=== PATIENT | female | born 1965 | race Caucasian/White ===

== ENCOUNTER → 2017-09-04 | Outpatient (CLI) | payer BC ==
[2017-09-04 09:17] LABS: HDW 2.35; MCH 30.6 pg (25.0-35.0)
[2017-09-04 09:21] LABS: ALT 28 U/L (9-52); AST 20 U/L (14-36); Alkaline Phosphatase 97 U/L (38-126); Anion Gap 9 mmol/L; Blood Urea Nitrogen 11 mg/dL (7-17); Calcium 9.2 mg/dL (8.4-10.2); Carbon Dioxide 25 mmol/L (22-30); Chloride 109 mmol/L (98-107); Cholesterol 221 mg/dL (<200); Glucose 96 mg/dL (74-99); HDL Cholesterol 44 mg/dL (40-60); Non-African American GFR(MDRD) >60 (>60 ml/min/1.73 sqM); Potassium 4.4 mmol/L (3.5-5.1); Sodium 143 mmol/L (137-145); Total Bilirubin 0.4 mg/dL (0.2-1.3)
[2017-09-04 09:24] LABS: CH 32.9; CHCM 34.3; HGB 14.6 gm/dL (11.4-16.0); MCHC 31.7 g/dL (31.0-37.0); MCV 96.3 fL (80.0-100.0); Mean Platelet Volume 7.5; RBC 4.77 m/uL (3.80-5.40); WBC 5.2 k/uL (3.8-10.6)
== END | disposition home or self-care (01) ==
LOC: LABWHC1 07:52
PROVIDERS: ATTEND Psychiatry & Neurology Psychiatry
DX: F31.60 Bipolar disorder, current episode mixed, unspecified (principal); E78.5 Hyperlipidemia, unspecified; Z79.899 Other long term (current) drug therapy
CPT/HCPCS: 36415; 80053; 80061; 80074; 84439; 84443; 85027

== ENCOUNTER → 2019-01-23 | Outpatient (CLI) | payer BC ==
--- NOTE | 2019-01-23 15:28 | NM ---
EXAMINATION TYPE: NM hepatobiliary w EF DATE OF EXAM: 01/23/2019 COMPARISON: NONE HISTORY: Abdominal pain not further specified per order. Nausea. TECHNIQUE: After the intravenous administration of 5.0 mCi Tc 99m Mebrofenin hepatobiliary scintigrap hy is performed. Immediate images post injection. FINDINGS: There is satisfactory initial accumulation of tracer by the liver. The gallbladder is visualized wit hin 20 minutes. The small bowel activity is noted within 25 minutes. At one hour 8 ounces of oral e nsure plus is given to mimic CCK and gallbladder ejection fraction is calculated at 79 %, in the norm al range. Therefore there is no scintigraphic evidence of cystic or common bile duct obstruction to suggest acute cholecystitis or gallbladder dyskinesia. IMPRESSION: Exam is within normal limits.
== END | disposition home or self-care (01) ==
LOC: RADNMMAIN 12:57
PROVIDERS: ATTEND Family Medicine
DX: R10.11 Right upper quadrant pain (principal); Z88.0 Allergy status to penicillin; Z88.6 Allergy status to analgesic agent
CPT/HCPCS: 78226; A9537

== ENCOUNTER → 2019-05-28 | Outpatient (CLI) | payer BC ==
[2019-05-28 12:23] LABS: HCT 45.7 % (34.0-46.0); HGB 15.7 gm/dL (11.4-16.0); MCHC 34.3 g/dL (31.0-37.0); MCV 90.4 fL (80.0-100.0); Mean Platelet Volume 7.5; Platelet Count 269 k/uL (150-450); RBC 5.06 m/uL (3.80-5.40); RDW 13.7 % (11.5-15.5); WBC 6.7 k/uL (3.8-10.6)
[2019-05-28 18:11] LABS: African American GFR (CKD) 84.6 (60.0-200.0); Albumin 4.3 g/dL (3.80-4.90); Albumin/Globulin Ratio 2.26 (1.60-3.17); BUN/Creat Ratio 12.22 Ratio (12.00-20.00); Calcium 9.3 mg/dL (8.7-10.3); Globulin 1.9 g/dL (1.6-3.3); LDL Cholesterol,Calculated 116.2 mg/dL (0.0-131.0); Potassium 4.2 mmol/L (3.5-5.5); Total Bilirubin 0.5 mg/dL (0.2-1.2); Total Protein 6.2 g/dL (6.2-8.2); VLDL Calculation 56.8 mg/dL (5.00-40.00)
[2019-05-28 18:19] LABS: T4, Free (Free Thyroxine) 0.9 ng/dL (0.80-1.80)
[2019-05-28 20:38] LABS: Hemoglobin A1C 5.3 % (4.0-6.0)
== END | disposition home or self-care (01) ==
LOC: LABWHC1 11:29
PROVIDERS: ATTEND Psychiatry & Neurology Psychiatry
DX: E78.5 Hyperlipidemia, unspecified (principal); R73.9 Hyperglycemia, unspecified
CPT/HCPCS: 36415; 80053; 80061; 83036; 84439; 84443; 85027

== ENCOUNTER → 2022-04-07 | Outpatient (CLI) | payer BC ==
[2022-04-07 18:39] LABS: HCT 44.4 % (37.2-46.3); HGB 15.3 g/dL (12.0-15.0); MCH 31.4 pg (27.0-32.0); MCHC 34.5 g/dL (32.0-37.0); NRBC Per 100 WBC 0 /100 WBCS (0.0-0.0); Platelet Count 250 X 10*3/uL (140-440); RBC 4.88 X 10*6/uL (4.10-5.20); RDW 11.1 % (11.5-14.5); WBC 6.75 X 10*3/uL (4.50-10.00)
[2022-04-07 19:35] LABS: Chol/HDL Ratio 6.25 Ratio; LDL Cholesterol,Calculated 111.9 mg/dL (0.0-131.0)
== END | disposition home or self-care (01) ==
LOC: LABWHC1 11:39
PROVIDERS: ATTEND Psychiatry & Neurology Psychiatry
DX: U07.1 COVID-19 (principal); E78.5 Hyperlipidemia, unspecified; E55.9 Vitamin D deficiency, unspecified
CPT/HCPCS: 36415; 80061; 82306; 85027; 86769

== ENCOUNTER → 2024-01-23 | Outpatient (CLI) | payer BC ==
[2024-01-23 16:53] VITALS: BP 165/85; PULSE 97; RESP 12; TEMP 98
--- NOTE | 2024-01-23 17:47 | P.PN ---
Subjective DATE: 01/23/2024 FOLLOW UP VISIT. Patient with obstructive sleep apnea hypopnea syndrome return to sleep center for follow-up visit. Information from previous visit have been reviewed. Patient was not able to use sure CPAP equipment regularly during the last months because her hose was broken. The patient does not have significant problems with the mask, PAP unit and humidification. Vanderbilt sleepiness scale is increased to 13. I checked information from PAP unit. PAP unit pressure 5-15, average 10.2 cm H2O. Leak is increased to 41.7 l/m. Apnea Hypopnea Index is 1.2, which is normal. While using CPAP patient feels no headaches, and feels much more refreshed after sleep. MEDICATIONS:1. Lamictal 100 mg twice a day 2. Rosuvastatin 10 mg once a day 3. Pantoprazole 20 mg once a day 4. Alprazolam 0.5 mg up to 3 times a day During physical exam: GENERAL: A pleasant patient without any distress. VITAL SIGNS: Please see below. HEENT: PERRLA, EOMI.low position of soft palate, Mallapati[] . NECK: Supple. No JVD. LUNGS: Clear to percussion and to auscultation. Good air exchange. No wheezing or rhonchi. HEART: S1, S2 regular. ABDOMEN: Soft and nontender.[] EXTREMITIES: No clubbing or cyanosis. TILE DESIGNER: Awake, alert, and oriented x3. No focal deficit. Impressions: 1. Obstructive sleep apnea-hypopnea syndrome. Patient demonstrated great compliance with treatment, benefiting from treatment. 2. Anxiety. 3. Asthma. 4. Hyperlipidemia. 5. Headaches. 6. History of fatty liver. 7. Status post . 8. Status post bilateral cataract surgery. Plan: 1. Continue using PAP equipment every night for the whole night. 2. To change air filter at least 1-2 times per month. 3. PAP unit should stay lower then position of the head. 4. Advised patient to remove all remaining water from humidifier canister daily and make it dry after each usage. Refill canister with fresh distilled water before each usage. 5. Sleep hygiene with regular time in bed for at least 8 hours. 6. Precautions related to driving. No driving if feel any sleepiness. 7. I will maintain prescription for PAP supplies including mask, tube, filters. 8. Follow up visit in 6 months or earlier if patient has any problems. 9. Watching weight. Thank you very much for allowing me to participate in the management of your patient. Best Barber MD, PhD, FAASM. Diplomat of [place] [employer], Sleep Medicine Board by [place] [employer] Linux Support Engineer of [facility] [place] Objective - Vital Signs Vital signs: Vital Signs Temp 98 F 01/23/24 16:23 Pulse 97 01/23/24 16:23 Resp 12 01/23/24 16:23 BP 165/85 01/23/24 16:23 Pulse Ox 96 01/23/24 16:23 FiO2 Intake & Output 01/22/24 01/23/24 01/23/24 18:59 06:59 18:59 Weight 88.904 kg
== END ==
LOC: 3 N SLEEP 15:45
PROVIDERS: ATTEND Internal Medicine
DX: G47.33 Obstructive sleep apnea (adult) (pediatric) (principal); F41.9 Anxiety disorder, unspecified; J45.909 Unspecified asthma, uncomplicated; E78.5 Hyperlipidemia, unspecified; R51.9 Headache, unspecified; F12.90 Cannabis use, unspecified, uncomplicated; Z87.19 Personal history of other diseases of the digestive system; Z98.890 Other specified postprocedural states; Z98.41 Cataract extraction status, right eye; Z98.42 Cataract extraction status, left eye; Z99.89 Dependence on other enabling machines and devices; Z88.6 Allergy status to analgesic agent; Z79.899 Other long term (current) drug therapy; Z88.0 Allergy status to penicillin; Z88.8 Allergy status to other drugs, medicaments and biological substances; Z87.891 Personal history of nicotine dependence
CPT/HCPCS: 99212

== ENCOUNTER 2024-04-15 09:53 | Emergency (ER) | payer BC ==
[2024-04-15 10:11] VITALS: TEMP 98.1
--- NOTE | 2024-04-15 12:03 | ED ---
Female Urogenital HPI - General Chief complaint: Urogenital Stated complaint: bad bladder infection Time Seen by Provider: 04/15/24 10:07 Source: patient, RN notes reviewed Mode of arrival: ambulatory Limitations: no limitations - History of Present Illness Initial comments: This is a 58-year-old female presents emergency department chief complaint of dy suria, hematuria, and suprapubic pain over the past 2 weeks, and symptoms this morning of worsening dysuria and hematuria prompted her to report to the urgent care. Patient states that [facility] where urinalysis was performed which revealed elevated WBCs and blood in the urine, she was prescribed bactrim DS. She denies fevers, nausea, vomiting, flank or back pain, diarrhea, constipation. Patient was recently treated with azithromycin 2 weeks ago for bronchitis. She denies vaginal discharge or pain. - Related Data Home Medications Medication Instructions Recorded Confirmed ALPRAZolam [Xanax] 0.5 mg PO Q8HR PRN 06/29/16 01/23/24 Acetaminophen [Tylenol] 1,000 mg PO Q8H PRN 06/29/16 01/23/24 Loratadine [Claritin] 10 mg PO DAILY PRN 06/29/16 01/23/24 lamoTRIgine [LaMICtal] 200 mg PO HS 06/29/16 01/23/24 Pantoprazole Sodium [Protonix] 20 mg PO DAILY 01/23/24 01/23/24 Rosuvastatin [Crestor] 20 mg PO ONCE 01/23/24 01/23/24 Previous Rx's Medication Instructions Recorded Phenazopyridine [Pyridium] 200 mg PO TID #6 tablet 04/15/24 Allergies Allergy/AdvReac Type Severity Reaction Status Date / Time aspirin Allergy Anaphylaxis Verified 04/15/24 10:11 NSAIDS (Non-Steroidal Allergy Rash/Hives Verified 04/15/24 10:11 Anti-Inflamma Penicillins Allergy Anaphylaxis Verified 04/15/24 10:11 Review of Systems ROS Statement: Those systems with pertinent positive or pertinent negative responses have been documented in the HPI. ROS Other: All systems not noted in ROS Statement are negative. Past Medical History Past Medical History: Asthma, Coronary Artery Disease (CAD), Hyperlipidemia, Syncope Additional Past Medical History / Comment(s): anxiety, enlarged liver History of Any Multi-Drug Resistant Organisms: None Reported Past Surgical History: Section, Heart Catheterization Additional Past Surgical History / Comment(s): abdominal surgery for hernia repair, and esophogus repair, cataracts surgery, laparoscopic Matt fundoplication, . Past Anesthesia/Blood Transfusion Reactions: No Reported Reaction Past Psychological History: Anxiety, Bipolar, Panic Disorder Smoking Status: Former smoker Past Alcohol Use History: None Reported Past Drug Use History: Marijuana - Past Family History Mother Family Medical History: Cancer, COPD, Myocardial Infarction ([place]) Additional Family Medical History / Comment(s): cervical CA Brother(s) Family Medical History: Seizure Disorder Additional Family Medical History / Comment(s): epiletic Sister(s) Family Medical History: No Reported History Father Family Medical History: No Reported History Daughter(s) Family Medical History: No Reported History Son(s) Family Medical History: No Reported History General Exam Limitations: no limitations General appearance: alert, in no apparent distress Head exam: Present: atraumatic, normocephalic, normal inspection Eye exam: Present: normal appearance, PERRL, EOMI. Absent: scleral icterus, conjunctival injection, periorbital swelling ENT exam: Present: normal exam, mucous membranes moist Neck exam: Present: normal inspection. Absent: tenderness, meningismus, lymphadenopathy Respiratory exam: Present: normal lung sounds bilaterally. Absent: respiratory distress, wheezes, rales, rhonchi, stridor Cardiovascular Exam: Present: regular rate, normal rhythm, normal heart sounds. Absent: systolic murmur, diastolic murmur, rubs, gallop, clicks GI/Abdominal exam: Present: soft, tenderness (Suprapubic), normal bowel sounds. Absent: distended, guarding, rebound, rigid Extremities exam: Present: normal inspection, full ROM, normal capillary refill. Absent: tenderness, pedal edema, joint swelling, calf tenderness Back exam: Present: normal inspection. Absent: CVA tenderness (R), CVA tenderness (L) Neurological exam: Present: alert, oriented X3, CN II-XII intact Psychiatric exam: Present: normal affect, normal mood Skin exam: Present: warm, dry, intact, normal color. Absent: rash Course Vital Signs 04/15/24 04/15/24 10:09 13:45 Temperature 98.1 F Pulse Rate 86 85 Respiratory 20 18 Rate Blood Pressure 169/92 184/98 O2 Sat by Pulse 99 96 Oximetry Medical Decision Making - Medical Decision Making Was pt. sent in by a medical professional or institution (, PA, [facility], urgent care, hospital, or fci...) When possible be specific @ -Referred by [facility] urgent care for further evaluation of elevated red blood cells and white blood cells within urine. he patient's provider at the was concerned regarding to abdominal distention and refer the patient to the emergency department for further evaluation. On discussion, patient states that her abdomen is nondistended and this is at baseline for her. Did you speak to anyone other than the patient for history (EMS, parent, family, police, friend...)? What history was obtained from this source @ -No Did you review nursing and triage notes (agree or disagree)? Why? @ -I reviewed and agree with nursing and triage notes Were old charts reviewed (outside hosp., previous admission, EMS record, old EKG, old radiological studies, urgent care reports/EKG's, fci records)? Report findings @ -No old charts were reviewed Differential Diagnosis (chest pain, altered mental status, abdominal pain women, abdominal pain men, vaginal bleeding, weakness, fever, dyspnea, syncope, headache, dizziness, GI bleed, back pain, seizure, CVA, palpatations, mental health, musculoskeletal)? @ -Differential Abdominal Pain Women: Appendicitis, Cholecystitis, diverticulosis, ischemic bowel, pancreatitis, hepatitis, UTI, gastroenteritis, AAA, incarcerated hernia, bowel obstruction, constipation, inflammatory bowel, hepatitis, peptic ulcer disease, splenic infarction, perforated viscus, vulvitis, ovarian torsion, PID, kidney stone, placenta abruption, this is not meant to be an all-inclusive list EKG interpreted by me (3pts min.). @ -None X-rays interpreted by me (1pt min.). @ -None done CT interpreted by me (1pt min.). @ -None done U/S interpreted by me (1pt. min.). @ -None done What testing was considered but not performed or refused? (CT, X-rays, U/S, labs)? Why? @ -ReSound and CT were considered but deferred at this time. Due to patient's urinalysis findings concern for infection she will be discharged home with antibiotics. Patient is requesting that she be discharged home and states that she will follow-up with her primary care provider this week for reevaluation of urinalysis. What meds were considered but not given or refused? Why? @ -Pain medication was offered but deferred at this time by the patient. Did you discuss the management of the patient with other professionals (professionals i.e. , PA, [facility] [facility], lab, RT, psych nurse, clinical social work aide, car unloader helper, teacher, annual giving officer, case liner)? Give summary @ -No Was smoking cessation discussed for >3mins.? @ -No Was critical care preformed (if so, how long)? @ -No Were there social determinants of health that impacted care today? How? (Homelessness, low income, unemployed, alcoholism, drug addiction, transportation, low edu. Level, literacy, decrease access to med. care, alf, rehab)? @ -No Was there de-escalation of care discussed even if they declined (Discuss DNR or withdrawal of care, Hospice)? DNR status @ -No What co-morbidities impacted this encounter? (DM, HTN, Smoking, COPD, CAD, Cancer, CVA, ARF, Chemo, Hep., AIDS, mental health diagnosis, sleep apnea, morbid obesity)? @ -None Was patient admitted / discharged? Hospital course, mention meds given and route, prescriptions, significant lab abnormalities, going to OR and other pertinent info. @ -Discharge. 58-year-old female with hematuria, increase in urinary frequency and urgency. Patient will be evaluated via urinalysis. On reevaluation, she states that she is experiencing bladder spasms therefore Pyridium is offered. UA reveals large blood, large leukocyte esterase, greater than 182 red blood cells and 161 white blood cells. shared decision-making the patient at bedside that she request to be sent home with oral antibiotics and that she will follow-up with her primary care provider this week for reevaluation of urinalysis. Additionally urine will be sent for culture. Patient has a prescription of Bactrim sent by urgent care that she visit this morning, recommend patient picking machine operator helper this prescription and complete full course of antibiotics. Prescription Pyridium was also sent for symptomatically for bladder spasms. All the patient's questions are answered at bedside and strict return parameters are communicated which patient verbalizes understanding. Stable for discharge. Case discussed with my attending Dr. Olivas Undiagnosed new problem with uncertain prognosis? @ -No Drug Therapy requiring intensive monitoring for toxicity (Heparin, Nitro, Insulin, Cardizem)? @ -No Were any procedures done? @ -No Diagnosis/symptom? @ -Hemorrhagic cystitis, urinary tract infection, suprapubic tenderness Acute, or Chronic, or Acute on Chronic? @ -Acute Uncomplicated (without systemic symptoms) or Complicated (systemic symptoms)? @ -Uncomplicated Side effects of treatment? @ -No Exacerbation, Progression, or Severe Exacerbation? @ -No Poses a threat to life or bodily function? How? (Chest pain, [place], [place], pneumonia, PE, COPD, DKA, ARF, appy, cholecystitis, CVA, Diverticulitis, Homicidal, Suicidal, threat to staff... and all critical care pts) @ -No - Lab Data Lab Results 04/15/24 Range/Units 12:18 Urine Color Light Yellow Urine Appearance Cloudy H (Clear) Urine pH 5.5 (5.0-8.0) Ur Specific Endeavor 1.015 (1.001-1.035) Urine Protein Negative (Negative) Urine Glucose (UA) Negative (Negative) Urine Ketones Negative (Negative) Urine Blood Large H (Negative) Urine Nitrite Negative (Negative) Urine Bilirubin Negative (Negative) Urine Urobilinogen <2.0 (<2.0) mg/dL Ur Leukocyte Esterase Large H (Negative) Urine RBC >182 H (0-5) /hpf Urine WBC 161 H (0-5) /hpf Ur Squamous Epith Cells 1 (0-4) /hpf Urine Mucus Rare H (None) /hpf Disposition Clinical Impression: Cystitis, Urinary tract infection Disposition: HOME SELF-CARE Condition: Good Instructions (If sedation given, give patient instructions): Urinary Tract Infection in Women (ED) Additional Instructions: Return to the emergency department if your symptoms worsen or improve. Complete full course of antibiotics, Bactrim, as prescribed. Follow-up with your primary care provider by Sunday this week for re-evaluation. Prescriptions: Phenazopyridine [Pyridium] 200 mg PO TID #6 tablet Is patient prescribed a controlled substance at d/c from ED?: No Referrals: Josh Sabillon DO [Primary Care Provider] - 1-2 days Time of Disposition: 13:32
[2024-04-15 13:13] LABS: Appearance,Urine Cloudy (Clear); Bilirubin,Urine Negative (Negative); Blood,Urine Large (Negative); Color,Urine Light Yellow; Glucose,Urine (UA) Negative (Negative); Ketones,Urine Negative (Negative); Leukocyte Esterase,Urine Large (Negative); Mucus,Urine Rare /hpf; Nitrite,Urine Negative (Negative); PH, Urine 5.5 (5.0-8.0); Protein,Urine Negative (Negative); RBC,Urine >182 /hpf (0-5); Specific Gravity,Urine 1.015 (1.001-1.035); Squamous Epithelial Cell,Urine 1 /hpf (0-4); Urobilinogen,Urine <2.0 mg/dL (<2.0); WBC,Urine 161 /hpf (0-5)
[2024-04-15] MEDS: PHENAZOPYRIDINE 200 MG TAB PO STA (13:44)
[2024-04-15 13:50] VITALS: BP 184/98; PULSE 85; RESP 18
== END 2024-04-15 13:51 | disposition home or self-care (01) ==
LOC: EC 09:53
DX: N30.91 Cystitis, unspecified with hematuria (principal); Z87.891 Personal history of nicotine dependence; Z88.0 Allergy status to penicillin; Z88.6 Allergy status to analgesic agent
CPT/HCPCS: 81001; 87086; 99283

== ENCOUNTER → 2024-08-20 | Outpatient (CLI) | payer BC ==
[2024-08-20 16:27] VITALS: BP 144/89; PULSE 18; RESP 84; TEMP 98.1
--- NOTE | 2024-08-20 17:52 | P.PROGSL ---
Subjective DATE: 08/20/2024 FOLLOW UP VISIT. Patient with obstructive sleep apnea hypopnea syndrome return to sleep center for follow-up visit. Information from previous visit have been reviewed. Patient is using PAP equipment every night for the whole night, getting PAP supplies in time. Sometimes there is a water in the mask. The patient does not have significant problems with the mask, PAP unit and humidification. Marion sleepiness scale is increased to 12. I checked information from PAP unit. PAP unit pressure 8-15, average 11.9 cm H2O. Usage is 100% and 83% for more then 4 hours, average 5 hours per night. Leak is 18.1 l/m, which is in acceptable range. Apnea Hypopnea Index is 1.7, which is normal. MEDICATIONS have been reviewed, please see below. During physical exam: GENERAL: A pleasant patient without any distress. VITAL SIGNS: Please see below, weight is 200.8 lbs. HEENT: PERRLA, EOMI.low position of soft palate, Mallapati 3. NECK: Supple. No JVD. LUNGS: Clear to percussion and to auscultation. Good air exchange. No wheezing or rhonchi. HEART: S1, S2 regular. ABDOMEN: Soft and nontender.[] EXTREMITIES: No clubbing or cyanosis. SAUSAGE WRAPPER: Awake, alert, and oriented x3. No focal deficit. Impressions: 1. Obstructive sleep apnea-hypopnea syndrome. Patient demonstrated great compliance with treatment, benefiting from treatment. 2. Asthma. 3. Anxiety. 4. History of headaches. 5. Hyperlipidemia. 6. History of fatty liver. 7. Status post bilateral cataract surgery. 8. Status post . Discussed with patient in details about adjustments of heated humidifier and heated tube. Plan: 1. Continue using PAP equipment every night for the whole night. 2. Sleep hygiene with regular time in bed for at least 7.5-8 hours 3. PAP unit should stay lower then position of the head. 4. Advised patient to remove all remaining water from humidifier canister daily and make it dry after each usage. Refill canister with fresh distilled water before each usage. 5. Watching weight. 6. Precautions related to driving. No driving if feel any sleepiness. 7. I will maintain prescription for PAP supplies including mask, tube, filters. 8. Follow up visit in 6 months or earlier if patient has any problems. Thank you very much for allowing me to participate in the management of your patient. Best Barber MD, PhD, FAASM. Diplomat of [place] [employer], Sleep Medicine Board by [place] [employer] Sediment Remediation Consultant of [facility] [place] Objective - Vital Signs Vital Signs: Vital Signs Temp 98.1 F 08/20/24 16:26 Pulse 18 L 08/20/24 16:26 Resp 84 H 08/20/24 16:26 BP 144/89 08/20/24 16:26 Pulse Ox 93 L 08/20/24 16:26 FiO2 Intake & Output 08/19/24 08/20/24 08/20/24 18:59 06:59 18:59 Weight 90.945 kg Home Medications: Home Medications Medication Instructions Recorded Confirmed Type ALPRAZolam [Xanax] 0.5 mg PO Q8HR PRN 06/29/16 08/20/24 History Acetaminophen [Tylenol] 1,000 mg PO Q8H PRN 06/29/16 01/23/24 History Loratadine [Claritin] 10 mg PO DAILY PRN 06/29/16 01/23/24 History lamoTRIgine [LaMICtal] 200 mg PO HS 06/29/16 08/20/24 History Pantoprazole Sodium [Protonix] 20 mg PO DIRECTED 01/23/24 08/20/24 History Rosuvastatin [Crestor] 20 mg PO ONCE 01/23/24 08/20/24 History Phenazopyridine [Pyridium] 200 mg PO TID #6 tablet 04/15/24 Rx Budesonide/Formoterol Fumarate 1 puff INHALATION BID 08/20/24 08/20/24 History [Symbicort 160-4.5 Mcg Inhaler] Doxycycline [Vibramycin] 100 mg PO BID 08/20/24 08/20/24 History predniSONE 10 mg PO DAILY 08/20/24 08/20/24 History
== END | disposition home or self-care (01) ==
LOC: 3 N SLEEP 15:59
PROVIDERS: ATTEND Internal Medicine
CPT/HCPCS: 99212

== ENCOUNTER → 2024-09-20 | Outpatient (CLI) | payer BC ==
[2024-09-20 23:09] LABS: BUN/Creat Ratio 13.78 Ratio (12.00-20.00); Blood Urea Nitrogen 12.4 mg/dL (9.0-27.0); Chol/HDL Ratio 5.33 Ratio; Glucose 91 mg/dL (70-110)
[2024-09-20 23:10] LABS: ALT 29 U/L (8-44); AST 26 U/L (13-35); Albumin 4.4 g/dL (3.8-4.9); Albumin/Globulin Ratio 1.76 Ratio (1.60-3.17); Alkaline Phosphatase 103 U/L (41-126); Calcium 9.3 mg/dL (8.7-10.3); Carbon Dioxide 23.3 mmol/L (21.6-31.8); Chloride 110 mmol/L (96-109); Globulin 2.5 g/dL (1.6-3.3); Potassium 4.3 mmol/L (3.5-5.5); Sodium 145 mmol/L (135-145); Total Bilirubin 0.4 mg/dL (0.3-1.2); Total Protein 6.9 g/dL (6.2-8.2)
== END | disposition home or self-care (01) ==
LOC: LABWHC1 10:26
PROVIDERS: ATTEND Internal Medicine Critical Care Medicine
DX: J45.909 Unspecified asthma, uncomplicated (principal)
CPT/HCPCS: 36415; 80053; 80061; 82785; 85008; 86003

== ENCOUNTER 2024-10-26 12:51 | Emergency (ER) | payer BC ==
--- NOTE | 2024-10-26 13:30 | ED ---
Female Urogenital HPI - General Source: patient, RN notes reviewed Mode of arrival: ambulatory Limitations: no limitations <Jessica Childers - Last Filed: 10/26/24 13:29> - General Source: patient, RN notes reviewed <Yas Bourgeois - Last Filed: 10/26/24 18:37> - General Chief complaint: Urogenital Stated complaint: Urogenital/Vag Bleeding Time Seen by Provider: 10/26/24 13:20 - History of Present Illness Initial comments: Quick Note: This is a 59-year-old female who presents to the emergency department for urinary symptoms. States that it started today. She has associated pain in her lower back and abdomen. Reports a history of UTIs. Denies any history of kidney stones. (Jessica Childers) 59-year-old female presenting to the emergency department for hematuria x 1 day. States this morning she woke up and noticed dark red blood in her urine. She was also passing small clots in the urine. Reports associated dysuria and low back pain. Denies history of kidney stones. States she has a history of frequent UTIs over the past several months. Denies fever, nausea, vomiting. (Yas Bourgeois) - Related Data Home Medications Medication Instructions Recorded Confirmed ALPRAZolam [Xanax] 0.5 mg PO Q8HR PRN 06/29/16 08/20/24 Acetaminophen [Tylenol] 1,000 mg PO Q8H PRN 06/29/16 01/23/24 Loratadine [Claritin] 10 mg PO DAILY PRN 06/29/16 01/23/24 lamoTRIgine [LaMICtal] 200 mg PO HS 06/29/16 08/20/24 Pantoprazole Sodium [Protonix] 20 mg PO DIRECTED 01/23/24 08/20/24 Rosuvastatin [Crestor] 20 mg PO ONCE 01/23/24 08/20/24 Budesonide/Formoterol Fumarate 1 puff INHALATION BID 08/20/24 08/20/24 [Symbicort 160-4.5 Mcg Inhaler] Doxycycline [Vibramycin] 100 mg PO BID 08/20/24 08/20/24 predniSONE 10 mg PO DAILY 08/20/24 08/20/24 Previous Rx's Medication Instructions Recorded Phenazopyridine [Pyridium] 200 mg PO TID #6 tablet 06/04/24 Nitrofurantoin Monohyd/M-Cryst 100 mg PO Q12HR #14 cap 10/26/24 [Macrobid] Phenazopyridine [Pyridium] 200 mg PO TID #6 tablet 10/26/24 Allergies Allergy/AdvReac Type Severity Reaction Status Date / Time aspirin Allergy Anaphylaxis Verified 10/26/24 13:15 NSAIDS (Non-Steroidal Allergy Rash/Hives Verified 10/26/24 13:15 Anti-Inflamma Penicillins Allergy Anaphylaxis Verified 10/26/24 13:15 Review of Systems ROS Other: All systems not noted in ROS Statement are negative. <Jessica Childers - Last Filed: 10/26/24 13:29> ROS Other: All systems not noted in ROS Statement are negative. <Yas Bourgeois - Last Filed: 10/26/24 18:37> ROS Statement: Those systems with pertinent positive or pertinent negative responses have been documented in the HPI. Past Medical History Past Medical History: Asthma, Coronary Artery Disease (CAD), Hyperlipidemia, Syncope Additional Past Medical History / Comment(s): anxiety, enlarged liver History of Any Multi-Drug Resistant Organisms: None Reported Past Surgical History: Section, Heart Catheterization Additional Past Surgical History / Comment(s): abdominal surgery for hernia repair, and esophogus repair, cataracts surgery, laparoscopic Matt fundoplication, . Past Anesthesia/Blood Transfusion Reactions: No Reported Reaction Past Psychological History: Anxiety, Bipolar, Panic Disorder Smoking Status: Former smoker Past Alcohol Use History: None Reported Past Drug Use History: Marijuana - Past Family History Mother Family Medical History: Cancer, COPD, Myocardial Infarction ([place]) Additional Family Medical History / Comment(s): cervical CA Brother(s) Family Medical History: Seizure Disorder Additional Family Medical History / Comment(s): epiletic Sister(s) Family Medical History: No Reported History Father Family Medical History: No Reported History Daughter(s) Family Medical History: No Reported History Son(s) Family Medical History: No Reported History <Jessica Childers - Last Filed: 10/26/24 13:29> General Exam Limitations: no limitations <Jessica Childers - Last Filed: 10/26/24 13:29> General appearance: alert, in no apparent distress Head exam: Present: atraumatic, normocephalic, normal inspection GI/Abdominal exam: Present: soft, normal bowel sounds. Absent: distended, tenderness, guarding, rebound, rigid Back exam: Absent: CVA tenderness (R), CVA tenderness (L) Neurological exam: Present: alert, oriented X3 Psychiatric exam: Present: normal affect, normal mood Skin exam: Present: warm, dry, intact, normal color. Absent: rash <Yas Bourgeois - Last Filed: 10/26/24 18:37> - General Exam Comments Initial Comments: Visual Physical Exam Vital signs reviewed General: Well-appearing, nontoxic, no acute distress. Head: Normocephalic, atraumatic Eyes: PERRLA, EOMI ENT: Airway patent Chest: Nonlabored breathing Skin: No visual rash, normal skin tone Neuro: Alert and oriented 3 Musculoskeletal: No gross abnormalities (Jessica Childers) Course Vital Signs 10/26/24 10/26/24 13:15 17:37 Temperature 98.1 F 98.9 F Pulse Rate 108 H 89 Respiratory 20 16 Rate Blood Pressure 169/105 143/81 O2 Sat by Pulse 95 95 Oximetry Medical Decision Making <Jessica Childers - Last Filed: 10/26/24 13:29> - Lab Data Result diagrams: 10/26/24 17:30 10/26/24 17:30 <Yas Bourgeois - Last Filed: 10/26/24 18:37> - Medical Decision Making I performed the QuickNote portion of this chart. Signed Jessica Childers PA-C. (Jessica Childers) Was pt. sent in by a medical professional or institution (JOE Jovel, SCREEN PRINTING INSPECTOR, urgent care, hospital, or care home...) When possible be specific @ -No Did you speak to anyone other than the patient for history (EMS, parent, family, police, friend...)? What history was obtained from this source @ -No Did you review nursing and triage notes (agree or disagree)? Why? @ -I reviewed and agree with nursing and triage notes Were old charts reviewed (outside hosp., previous admission, EMS record, old EKG, old radiological studies, urgent care reports/EKG's, care home records)? Report findings @ -No old charts were reviewed Differential Diagnosis (chest pain, altered mental status, abdominal pain women, abdominal pain men, vaginal bleeding, weakness, fever, dyspnea, syncope, headache, dizziness, GI bleed, back pain, seizure, CVA, palpatations, mental health, musculoskeletal)? @ -Differential Abdominal Pain Women: Appendicitis, Cholecystitis, diverticulosis, ischemic bowel, pancreatitis, hepatitis, UTI, gastroenteritis, AAA, incarcerated hernia, bowel obstruction, constipation, inflammatory bowel, hepatitis, peptic ulcer disease, splenic infarction, perforated viscus, vulvitis, ovarian torsion, PID, kidney stone, placenta abruption, this is not meant to be an all-inclusive list EKG interpreted by me (3pts min.). @ -None X-rays interpreted by me (1pt min.). @ -None done CT interpreted by me (1pt min.). @ -CT abdomen pelvis reveals no acute process U/S interpreted by me (1pt. min.). @ -None done What testing was considered but not performed or refused? (CT, X-rays, U/S, labs)? Why? @ -None What meds were considered but not given or refused? Why? @ -None Did you discuss the management of the patient with other professionals (professionals i.e. , PA, SCREEN PRINTING INSPECTOR, lab, RT, psych nurse, psychotherapist social worker, devulcanizer tender, teacher, special officer automat, caseworker intake)? Give summary @ -No Was smoking cessation discussed for >3mins.? @ -No Was critical care preformed (if so, how long)? @ -No Were there social determinants of health that impacted care today? How? (Homelessness, low income, unemployed, alcoholism, drug addiction, transportation, low edu. Level, literacy, decrease access to med. care, [facility], rehab)? @ -No Was there de-escalation of care discussed even if they declined (Discuss DNR or withdrawal of care, Hospice)? DNR status @ -No What co-morbidities impacted this encounter? (DM, HTN, Smoking, COPD, CAD, Cancer, CVA, ARF, Chemo, Hep., AIDS, mental health diagnosis, sleep apnea, morbid obesity)? @ -None Was patient admitted / discharged? Hospital course, mention meds given and route, prescriptions, significant lab abnormalities, going to OR and other pertinent info. @ -Discharge. This is a 59-year-old female presenting for hematuria x 1 day with associated dysuria and low back pain. Patient is initially hypertensive and tachycardic. She is afebrile with no CVA tenderness. Patient is provided with IV fluids and analgesics. Lab work remarkable for leukocytosis of 13.8 with left shift and glucose 121. Urinalysis remarkable for large amount of red blood cells and white blood cells. CT abdomen pelvis reveals no acute process. Upon reevaluation, heart rate decreases to 89 bpm and blood pressure 143/81. Results discussed with patient. Symptoms and results are indicative of urinary tract infection at this time. Patient has been taking Bactrim in the past month for UTI and has Keflex allergy, therefore we will start patient on Macrobid. Due to frequent UTIs, advised to follow-up with urologist. Appropriate return precautions and follow-up care discussed. Case was discussed with my ED attending Dr. Dinh. Undiagnosed new problem with uncertain prognosis? @ -No Drug Therapy requiring intensive monitoring for toxicity (Heparin, Nitro, Insulin, Cardizem)? @ -No Were any procedures done? @ -No Diagnosis/symptom? @ -Urinary tract infection Acute, or Chronic, or Acute on Chronic? @ -Acute Uncomplicated (without systemic symptoms) or Complicated (systemic symptoms)? @ -Uncomplicated Side effects of treatment? @ -No Exacerbation, Progression, or Severe Exacerbation? @ -No Poses a threat to life or bodily function? How? (Chest pain, [place], NC, pneumonia, PE, COPD, DKA, ARF, appy, cholecystitis, CVA, Diverticulitis, Homicidal, Suicidal, threat to staff... and all critical care pts) @ -No (Yas Bourgeois) - Lab Data Lab Results 10/26/24 10/26/24 10/26/24 Range/Units 13:15 17:30 17:30 WBC 13.8 H (3.8-10.6) k/uL RBC 4.98 (3.80-5.40) m/uL Hgb 15.8 (11.4-16.0) gm/dL Hct 46.4 H (34.0-46.0) % MCV 93.3 (80.0-100.0) fL MCH 31.7 (25.0-35.0) pg MCHC 33.9 (31.0-37.0) g/dL RDW 11.4 L (11.5-15.5) % Plt Count 255 (150-450) k/uL MPV 7.2 Neutrophils % 72 % Lymphocytes % 21 % Monocytes % 5 % Eosinophils % 1 % Basophils % 0 % Neutrophils # 9.9 H (1.3-7.7) k/uL Lymphocytes # 2.9 (1.0-4.8) k/uL Monocytes # 0.7 (0-1.0) k/uL Eosinophils # 0.2 (0-0.7) k/uL Basophils # 0.1 (0-0.2) k/uL Sodium 142 (137-145) mmol/L Potassium 3.6 (3.5-5.1) mmol/L Chloride 109 H (98-107) mmol/L Carbon Dioxide 25 (22-30) mmol/L Anion Gap 8 mmol/L BUN 11 (7-17) mg/dL Creatinine 0.78 (0.52-1.04) mg/dL Est GFR (CKD-EPI)AfAm >90 (>60 ml/min/1.73 sqM) Est GFR (CKD-EPI)NonAf 84 (>60 ml/min/1.73 sqM) Glucose 121 H (74-99) mg/dL Plasma Lactic Acid Javier (0.7-2.0) mmol/L Calcium 9.2 (8.4-10.2) mg/dL Total Bilirubin 0.5 (0.2-1.3) mg/dL AST 22 (14-36) U/L ALT 22 (4-34) U/L Alkaline Phosphatase 86 (38-126) U/L Total Protein 6.5 (6.3-8.2) g/dL Albumin 4.1 (3.5-5.0) g/dL Urine Color Dark Red Urine Appearance Turbid H (Clear) Urine RBC >182 H (0-5) /hpf Urine WBC >182 H (0-5) /hpf Urine WBC Clumps Many H (None) /hpf 10/26/ Range/Units 17:30 WBC (3.8-10.6) k/uL RBC (3.80-5.40) m/uL Hgb (11.4-16.0) gm/dL Hct (34.0-46.0) % MCV (80.0-100.0) fL MCH (25.0-35.0) pg MCHC (31.0-37.0) g/dL RDW (11.5-15.5) % Plt Count (150-450) k/uL MPV Neutrophils % % Lymphocytes % % Monocytes % % Eosinophils % % Basophils % % Neutrophils # (1.3-7.7) k/uL Lymphocytes # (1.0-4.8) k/uL Monocytes # (0-1.0) k/uL Eosinophils # (0-0.7) k/uL Basophils # (0-0.2) k/uL Sodium (137-145) mmol/L Potassium (3.5-5.1) mmol/L Chloride (98-107) mmol/L Carbon Dioxide (22-30) mmol/L Anion Gap mmol/L BUN (7-17) mg/dL Creatinine (0.52-1.04) mg/dL Est GFR (CKD-EPI)AfAm (>60 ml/min/1.73 sqM) Est GFR (CKD-EPI)NonAf (>60 ml/min/1.73 sqM) Glucose (74-99) mg/dL Plasma Lactic Acid Javier 2.0 (0.7-2.0) mmol/L Calcium (8.4-10.2) mg/dL Total Bilirubin (0.2-1.3) mg/dL AST (14-36) U/L ALT (4-34) U/L Alkaline Phosphatase (38-126) U/L Total Protein (6.3-8.2) g/dL Albumin (3.5-5.0) g/dL Urine Color Urine Appearance (Clear) Urine RBC (0-5) /hpf Urine WBC (0-5) /hpf Urine WBC Clumps (None) /hpf Disposition <Jessica Childers - Last Filed: 10/26/24 13:29> Is patient prescribed a controlled substance at d/c from ED?: No Time of Disposition: 18:32 <Yas Bourgeois - Last Filed: 10/26/24 18:37> Clinical Impression: Urinary tract infection Disposition: HOME SELF-CARE Condition: Stable Instructions (If sedation given, give patient instructions): Urinary Tract Infection in Women (ED) Additional Instructions: Take Macrobid as directed. Take Pyridium as needed for urinary discomfort. Follow-up with urologist as discussed. Please return to the Emergency Department if symptoms worsen or any other concerns. Prescriptions: Nitrofurantoin Monohyd/M-Cryst [Macrobid] 100 mg PO Q12HR #14 cap Phenazopyridine [Pyridium] 200 mg PO TID #6 tablet Referrals: None,Stated [Primary Care Provider] - 1-2 days Rajeev Donald MD [STAFF PHYSICIAN] - 1-2 days
[2024-10-26 13:55] LABS: Appearance,Urine Turbid (Clear); Color,Urine Dark Red
[2024-10-26 13:57] LABS: RBC,Urine >182 /hpf (0-5); WBC,Urine >182 /hpf (0-5)
--- NOTE | 2024-10-26 15:09 | CT ---
EXAMINATION TYPE: CT abdomen pelvis wo con DATE OF EXAM: 10/26/2024 2:16 PM COMPARISON: None available. CLINICAL INDICATION: Female, 59 years old with history of Flank pain, hematuria; gross hematuria/rt f lank pain TECHNIQUE: Axial CT abdomen pelvis wo con;Sagittal and coronal reformats were created on a separate workstation. Oral contrast used: without Oral Contrast (none if empty) CT DLP: 743 mGycm, Automated exposure control for dose reduction was used. FINDINGS: LOWER CHEST: Unremarkable ABDOMEN LIVER: Diffusely hypoattenuating parenchyma. GALLBLADDER AND BILE DUCTS: The gallbladder is surgically absent. PANCREAS: Unremarkable. SPLEEN: Unremarkable. ADRENAL GLANDS: Unremarkable. KIDNEYS AND URETERS: No evidence of hydronephrosis or renal calculus. The ureters are unremarkable. Simple appearing cyst in the inferior kidney. PELVIS BLADDER: No evidence for wall thickening or mass given limitations of exam. REPRODUCTIVE: Unremarkable. ABDOMEN & PELVIS STOMACH AND BOWEL: Post surgical changes noted at the GE junction. Scattered diverticula are noted th roughout the colon. No evidence of bowel obstruction. PERITONEUM/RETROPERITONEUM: No evidence of pneumoperitoneum or free fluid. VASCULATURE: No evidence of aortic aneurysm. MUSCULOSKELETAL: No acute osseous abnormalities LYMPH NODES: No gross evidence for lymphadenopathy. SOFT TISSUE/ABDOMINAL WALL: Unremarkable IMPRESSION: No acute abnormality in the abdomen/pelvis or CT findings to explain reported symptoms. [facility], , 10/26/2024 3:06 PM
[2024-10-26] MEDS: SODIUM CHLORIDE 0.9% 1,000 ML IV STA (17:36)
[2024-10-26 17:40] LABS: Basophils # (A) 0.1 k/uL (0-0.2); Basophils % (A) 0 %; Eosinophils # (A) 0.2 k/uL (0-0.7); Eosinophils % (A) 1 %; HCT 46.4 % (34.0-46.0); HGB 15.8 gm/dL (11.4-16.0); Lymphocytes # (A) 2.9 k/uL (1.0-4.8); Lymphocytes % (A) 21 %; MCH 31.7 pg (25.0-35.0); MCHC 33.9 g/dL (31.0-37.0); MCV 93.3 fL (80.0-100.0); Mean Platelet Volume 7.2; Monocytes # (A) 0.7 k/uL (0-1.0); Monocytes % (A) 5 %; Neutrophils # (A) 9.9 k/uL (1.3-7.7); Neutrophils % (A) 72 %; Platelet Count 255 k/uL (150-450); RBC 4.98 m/uL (3.80-5.40); RDW 11.4 % (11.5-15.5); WBC 13.8 k/uL (3.8-10.6)
[2024-10-26 17:41] VITALS: PULSE 89
[2024-10-26 17:55] LABS: African American GFR (CKD) >90 (>60 ml/min/1.73 sqM); Anion Gap 8 mmol/L; Blood Urea Nitrogen 11 mg/dL (7-17); Carbon Dioxide 25 mmol/L (22-30); Chloride 109 mmol/L (98-107); Glucose 121 mg/dL (74-99); Potassium 3.6 mmol/L (3.5-5.1); Sodium 142 mmol/L (137-145)
[2024-10-26 17:56] LABS: ALT 22 U/L (4-34); AST 22 U/L (14-36); Albumin 4.1 g/dL (3.5-5.0); Alkaline Phosphatase 86 U/L (38-126); Calcium 9.2 mg/dL (8.4-10.2); Non-African American GFR(CKD) 84 (>60 ml/min/1.73 sqM); Total Bilirubin 0.5 mg/dL (0.2-1.3); Total Protein 6.5 g/dL (6.3-8.2)
[2024-10-26] MEDS: PHENAZOPYRIDINE 100 MG TAB PO STA (19:07)
[2024-10-26] MEDS: NITROFURANTOIN MONOHYD/M-CRYST 100 MG CAP PO STA (19:07)
[2024-10-26 19:14] VITALS: BP 143/83; RESP 18; TEMP 98.8
== END 2024-10-26 19:43 | disposition home or self-care (01) ==
LOC: EC 12:51
DX: N39.0 Urinary tract infection, site not specified (principal); Z87.891 Personal history of nicotine dependence; Z88.6 Allergy status to analgesic agent; Z88.0 Allergy status to penicillin
CPT/HCPCS: 36415; 74176; 80053; 81001; 83605; 85025; 87077; 87086; 87186; 96360; 99284

== ENCOUNTER → 2024-12-16 | Outpatient (CLI) | payer BC ==
--- NOTE | 2024-12-16 12:31 | XR ---
EXAMINATION TYPE: XR IVP DATE OF EXAM: 12/16/2024 COMPARISON: CT abdomen and pelvis October 26, 2024 CLINICAL INDICATION: Female, 59 years old with history of R31.0 gross hematuria; [facility], TECHNIQUE: Following intravenous administration of 100 cc Omnipaque 300, multiple spot images are obt ained. The preliminary film of the abdomen reveals no significant abnormality. No definite nephrolithiasis i s seen. Following intravenous administration of contrast material, sequential films of the abdomen were obtai jesus. There is prompt and symmetrical excretion of the contrast by both kidneys which demonstrate nor mal size and configuration. Slight prominence of the right-sided collecting system without calyceal d ilatation consistent with extrarenal pelvis. There is no mass or obstruction visualized. There is g radual accumulation of contrast material in the urinary bladder showing no gross abnormality. The po st-voiding film shows minimal residual contrast in the collecting systems and urinary bladder. IMPRESSION: Essentially normal IVP , no significant finding is seen to account for patient's clinical symptoms. I f symptoms persist further investigation with CT urogram would be warranted. [facility], , 12/16/2024 12:28 PM
== END | disposition home or self-care (01) ==
LOC: RADFLMAIN 08:50
PROVIDERS: ATTEND Urology
DX: R31.0 Gross hematuria (principal)
CPT/HCPCS: 74400; Q9967

== ENCOUNTER → 2025-05-06 | Outpatient (CLI) | payer BC ==
[2025-05-06 17:22] VITALS: BP 145/97; PULSE 84; RESP 20; TEMP 98.5
--- NOTE | 2025-05-06 17:46 | P.PROGSL ---
Subjective DATE: 05/06/2025 FOLLOW UP VISIT. Patient with obstructive sleep apnea hypopnea syndrome return to sleep center for follow-up visit. Information from previous visit have been reviewed. Patient is using PAP equipment every night for the whole night, getting PAP supplies in time. The patient does not have significant problems with the mask, PAP unit and humidification. Jackson sleepiness scale is increased to 12. Patient takes several naps during the day. I checked information from PAP unit. PAP unit pressure 5-15, average 10.9 cm H2O. Usage is 83% for more then 4 hours, average 4 hours per night. Leak is 11.2 l/m, which is in acceptable range. Apnea Hypopnea Index is 1.5, which is normal. MEDICATIONS: Lamictal 200 mg in the evening, Xanax 0.5 mg as needed for anxiety, montelukast 10 mg once a day, pantoprazole 40 mg once a day, Symbicort inhaler, albuterol. During physical exam: GENERAL: A pleasant patient without any distress. VITAL SIGNS: Please see below, weight is 202.6 lbs. HEENT: PERRLA, EOMI.low position of soft palate, Mallapati 3. NECK: Supple. No JVD. LUNGS: Clear to percussion and to auscultation. Good air exchange. No wheezing or rhonchi. HEART: S1, S2 regular. ABDOMEN: Soft and nontender.[] EXTREMITIES: No clubbing or cyanosis. BUDGET TECHNICIAN: Awake, alert, and oriented x3. No focal deficit. Impressions: 1. Obstructive sleep apnea-hypopnea syndrome. Patient demonstrated borderline compliance with treatment, benefiting from treatment. 2. Hypertension in the office. 3. Anxiety. 4. Asthma. 5. History of headaches. 6. Hyperlipidemia. 7. History of fatty liver. 8. Status post . 9. Status post bilateral cataract surgery. Plan: 1. Continue using PAP equipment every night for the whole night. 2. Sleep hygiene with regular time in bed for at least 7.5-8 hours 3. PAP unit should stay lower then position of the head. 4. Advised patient to remove all remaining water from humidifier canister daily and make it dry after each usage. Refill canister with fresh distilled water before each usage. 5. Watching weight. 6. Precautions related to driving. No driving if feel any sleepiness. 7. I will maintain prescription for PAP supplies including mask, tube, filters. 8. Follow up visit in 8 months or earlier if patient has any problems. If patient will continue significant sleepiness during the day we may consider multiple sleep latency test. Thank you very much for allowing me to participate in the management of your patient. Best Barber MD, PhD, FAASM. Diplomat of [place] [employer], Sleep Medicine Board by [place] [employer] [facility] Objective - Vital Signs Vital Signs: Vital Signs Temp 98.5 F 05/06/25 17:19 Pulse 84 05/06/25 17:19 Resp 20 05/06/25 17:19 BP 145/97 05/06/25 17:19 Pulse Ox 94 L 05/06/25 17:19 FiO2 Intake & Output 05/05/25 05/06/25 05/06/25 18:59 06:59 18:59 Weight 91.796 kg Home Medications: Home Medications Medication Instructions Recorded Confirmed Type ALPRAZolam [Xanax] 0.5 mg PO Q8HR PRN 06/29/16 08/20/24 History Acetaminophen [Tylenol] 1,000 mg PO Q8H PRN 06/29/16 01/23/24 History Loratadine [Claritin] 10 mg PO DAILY PRN 06/29/16 01/23/24 History lamoTRIgine [LaMICtal] 200 mg PO HS 06/29/16 08/20/24 History Pantoprazole Sodium [Protonix] 20 mg PO DIRECTED 01/23/24 08/20/24 History Rosuvastatin [Crestor] 20 mg PO ONCE 01/23/24 08/20/24 History Phenazopyridine [Pyridium] 200 mg PO TID #6 tablet 04/15/24 Rx Budesonide/Formoterol Fumarate 1 puff INHALATION BID 08/20/24 08/20/24 History [Symbicort 160-4.5 Mcg Inhaler] Doxycycline [Vibramycin] 100 mg PO BID 08/20/24 08/20/24 History predniSONE 10 mg PO DAILY 08/20/24 08/20/24 History Nitrofurantoin Monohyd/M-Cryst 100 mg PO Q12HR #14 cap 10/26/24 Rx [Macrobid] Phenazopyridine [Pyridium] 200 mg PO TID #6 tablet 10/26/24 Rx
== END ==
LOC: 3 N SLEEP 16:36
PROVIDERS: ATTEND Internal Medicine
DX: G47.33 Obstructive sleep apnea (adult) (pediatric) (principal); I10 Essential (primary) hypertension; F41.9 Anxiety disorder, unspecified; J45.909 Unspecified asthma, uncomplicated; E78.5 Hyperlipidemia, unspecified; F12.90 Cannabis use, unspecified, uncomplicated; Z86.69 Personal history of other diseases of the nervous system and sense organs; Z99.89 Dependence on other enabling machines and devices; Z87.19 Personal history of other diseases of the digestive system; Z98.890 Other specified postprocedural states; Z98.41 Cataract extraction status, right eye; Z98.42 Cataract extraction status, left eye; Z87.891 Personal history of nicotine dependence; Z88.0 Allergy status to penicillin; Z88.6 Allergy status to analgesic agent
CPT/HCPCS: 99212